=== PATIENT | male | born 1975 | race Caucasian/White ===

== ENCOUNTER → 2017-01-06 | Outpatient (CLI) | payer BC | LOC: BMCIMAGING 10:41 | PROVIDERS: ATTEND Family Medicine | DX: D40.12 Neoplasm of uncertain behavior of left testis (principal) ==

== ENCOUNTER → 2017-01-21 | Outpatient (CLI) | payer BC ==
[~2017-01-21] MED LIST: IOPAMIDOL (ISOVUE-300) 100 ML BTL IV ONE
== END ==
LOC: CIMAGING 08:10
PROVIDERS: ATTEND Family Medicine
DX: C62.92 Malignant neoplasm of left testis, unspecified whether descended or undescended (principal); N28.89 Other specified disorders of kidney and ureter
CPT/HCPCS: 71020-PO; 74177-PO; Q9967

== ENCOUNTER → 2017-01-25 | Outpatient (CLI) | payer BC ==
[~2017-01-25] MED LIST changes: +GADOBUTROL 10 ML VIAL IVP ONE; -IOPAMIDOL (ISOVUE-300) 100 ML BTL IV ONE
== END ==
LOC: FIMAGING 13:30
PROVIDERS: ATTEND Family Medicine
DX: N28.89 Other specified disorders of kidney and ureter (principal)
CPT/HCPCS: A9585